=== PATIENT | female | born 1960 | race Caucasian/White ===

== ENCOUNTER 2025-01-22 13:15 | Outpatient (AMB) | payer MEDICARE, SELFPAY ==
[2025-01-22 13:22] VITALS: BMI 27.2
--- NOTE | 2025-01-22 13:22 | A.PHYSOV_ITS ---
Vital Signs 01/22/25 13:22 Height 5 ft 8 in Weight 179 lb BMI 27.2 Intake Visit Reasons: B/L SHOULDER INJECTIONS Intake Note: Patient is a 64 year old female in office today for bilateral shoulder injection. Audio Production Manager Required: No Allergies Sulfa (Sulfonamide Antibiotics) Allergy (Unknown, Verified 01/22/25 13:25) Unknown cillin family Allergy (Unknown, Uncoded 01/22/25 13:25) Unknown [facility] Medical History (Updated 01/22/25 @ 13:48 by uJan Carlos Cartagena DO) Rotator cuff impingement syndrome of right shoulder Rotator cuff impingement syndrome of left shoulder Surgical History History of cataract surgery History of knee surgery History of cholecystectomy History of back surgery Social History Alcohol intake: current Alcohol intake frequency: holidays/special occasions only Patient Tobacco Use Status: Former Tobacco user Current occupational status: retired Physical Exam Vital Signs: BMI result Body Mass Index 27.2 Office Procedures AMB Shoulder Injection AMB Shoulder Injection Procedure Details: After informed consent was obtained, anterior aspect of the left shoulder was prepped with Betadine. 1.5 in 22 gauge hypodermic needle was introduced percutaneously and advanced into the subacromial area. After negative aspiration for blood total volume of 6 cc containing 40 mg of triamcinolone and 2% lidocaine was injected without resistance. The identical procedure was repeated on the right side. Patient tolerated procedure very well without complications with excellent anesthetic response. Shoulder Injection - : Bilateral All charges added?: Procedure code (CPT) selection complete Office Meds Kenalog 40 mg/mL suspension for injection Performing Provider: Juan Carlos Cartagena DO Performing Location[facility] Administered by: Juan Carlos Cartagena DO on 01/22/25 13:49 Dose Route Admin Location Dispensed Lot Number Expiration Date [facility] Windows Phone Developer 80 mg intra-articular 2 mL [id number] [employer] Total Dispensed Waste 2 mL 0 % lidocaine (PF) 20 mg/mL (2 %) injection solution Performing Provider: Juan Carlos Cartagena DO Performing Location: [facility] Administered by: Juan Carlos Cartagena DO on 01/22/25 13:49 Dose Route Admin Location Dispensed Lot Number Expiration Date [facility] Windows Phone Developer 200 mg intra-articular 10 mL [id number] [facility] Total Dispensed Waste 10 mL 0 % Assessment & Plan Assessment & Plan (1) Rotator cuff impingement syndrome of left shoulder: Code(s): M75.42 - Impingement syndrome of left shoulder Category: Medical (2) Rotator cuff impingement syndrome of right shoulder: Code(s): M75.41 - Impingement syndrome of right shoulder Category: Medical Plan: Bilateral shoulder injections Plan Bilateral shoulder injections Orders: Orders AMB Shoulder Injection Today M75.41 - Impingement syndrome of right shoulder, M75.42 - Impingement syndrome of left shoulder Coding Level of Care Code Procedure Only Diagnoses Rotator cuff impingement syndrome of left shoulder M75.42 Rotator cuff impingement syndrome of right shoulder M75.41 CPT Codes AMB Shoulder Injection - Hip/Bursa Injection - : Bilateral ([id number])
--- OUTSIDE RECORDS SUMMARY | 2025-01-22 17:39 | XMS_ITS | Encounter Summary ---
Author Organization [facility] [employer] [facility] Prior to 12/16/2023 Address [address] [place] [address] Care Team Providers Care Fiber Product Cutting Machine Operator Name Role Phone Jose Martin Wang MD Primary Care Provider [phone] Encounter Details Date Type Department Care Team Description 03/02/2023 [facility] Medical Records [address] [place] [address] Abstract, Provider Social History Tobacco Use Types Packs/Day Years Used Date Smoking Tobacco: Former Cigarettes 0.1 33 0 02/14/1981 - 02/14/2014 Smokeless Tobacco: Former Comments:occ Alcohol Use Standard Drinks/Week Comments Yes 0 (1 standard drink = 0.6 oz pur e alcohol) rare Sex Assigned at Date Recorded Not on file Job Start Date Occupation Industry Not on file Not on file Not on file documented as of this encounter Plan of Treatment Not on file documented as of this encounter Visit Diagnoses Not on filedocumented in this encounter Care Teams Fiber Product Cutting Machine Operator Relationship Specialty Start Date End Date Jose Martin Wang MD [address] [place], [place] [phone] PCP - General 07/15/10 documented as of this encounter
--- OUTSIDE RECORDS SUMMARY | 2025-01-22 17:39 | XMS_ITS | Encounter Summary ---
Author Organization [facility] Prior to 12/16/2023 Address [address] [place] [address] Care Team Providers Care Christmas Bell Ringer Name Role Phone Jose Martin Wang MD Primary Care Provider [phone] Encounter Details Date Type Department Care Team Description 06/22/2023 Offset Label Rewinder Report Medical Records [address] [place] [address] Juan Carlos Cartagena, Social History Tobacco Use Types Packs/Day Years [...] on filedocumented in this encounter Care Teams Christmas Bell Ringer Relationship Specialty Start Date End Date Jose Martin Wang MD [address] [place], [place] [phone] PCP - General 07/15/10 documented as of this encounter
--- OUTSIDE RECORDS SUMMARY | 2025-01-22 17:39 | XMS_ITS | Encounter Summary ---
Author Organization [facility]rud[facility] [employer] [facility] Prior to 12/16/2023 Address [address] [place] [address] Care Team Providers Care Miller Distillery Name Role Phone Jose Martin Wang MD Primary Care Provider [phone] Encounter Details Date Type Department Care Team Description 04/21/2023 Pt. Non Urgent Medical Question Adult Medicine [address] [phone] Jose Martin Wang MD [address] [place] [address] Social History Tobacco Use Types Packs/Day Years [...] on filedocumented in this encounter Care Teams Miller Distillery Relationship Specialty Start Date End Date Jose Martin Wang MD [address] [place] [address] PCP - General 07/15/10 documented as of this encounter
--- OUTSIDE RECORDS SUMMARY | 2025-01-22 17:39 | XMS_ITS | Encounter Summary ---
Author Organization [facility]rudis [employer] [facility] Prior to 12/16/2023 Address [address] [place] [address] Care Team Providers Care Extension Division Director Name Role Phone Jose Martin Wang MD Primary Care Provider [phone] Jerome Wilcox MD Primary Care Provider Unav ailable Encounter Details Date Type Department Care Team Description 02/18/2010 Hospital Medical Records [address] [place] [address] Anaid Alejandro Social History Tobacco Use Types Packs/Day Years [...] on filedocumented in this encounter Care Teams Extension Division Director Relationship Specialty Start Date End Date Jose Martin Wang MD [address] [place], [place] [phone] PCP - General 07/15/10 Jerome Wilcox MD PCP - General 12/14/1993 07/14/10 documented as of this encounter
--- OUTSIDE RECORDS SUMMARY | 2025-01-22 17:39 | XMS_ITS | Encounter Summary ---
Author Organization [employer] [facility] Prior to 12/16/2023 Address [address] [place] [address] Care Team Providers Care Rate Clerk Passenger Name Role Phone Jose Martin Wang MD Primary Care Provider [phone] Encounter Details Date Type Department Care Team Description 05/27/2023 Orders Only Adult Medicine [facility] [address] [place] [address] [phone] Ibeth Doll PA-C [address] [place] [address] [phone] Social History Tobacco Use Types Packs/Day Years [...] on filedocumented in this encounter Care Teams Rate Clerk Passenger Relationship Specialty Start Date End Date Jose Martin Wang MD [address] [place] [address] [phone] PCP - General 07/15/10 documented as of this encounter
--- OUTSIDE RECORDS SUMMARY | 2025-01-22 17:40 | XMS_ITS | Encounter Summary ---
Author Organization [employer] [facility] Prior to 12/16/2023 Address [address] [place] [address] Care Team Providers Care Flatbed Company Driver Name Role Phone Jose Martin Wang MD Primary Care Provider [phone] Encounter Details Date Type Department Care Team Description 09/21/2022 Orders Only Medical Records [address] [place] [address] Abstract, Provider Social History Tobacco Use Types [...] on file documented as of this encounter Procedures Procedure Name Priority Date/Time Associated Diagnosis Comments OUTSIDE PLAIN FILM Routine 08/03/2022 documented in this encounter Results * OUTSIDE PLAIN FILM (08/03/2022) Provider Abstract RADIOLOGY documented in this encounter Visit Diagnoses Not on filedocumented in this encounter Care Teams Flatbed Company Driver Relationship Specialty Start Date End Date Jose Martin Wang MD [address] [place] [address] PCP - General 07/15/10 documented as of this encounter
--- OUTSIDE RECORDS SUMMARY | 2025-01-22 17:40 | XMS_ITS | Encounter Summary ---
Author Organization [facility] [facility] Prior to 12/16/2023 Address [address] [place] [address] Care Team Providers Care Architectural Technician Name Role Phone Jose Martin Wang MD Primary Care Provider [phone] Encounter Details Date Type Department Care Team Description 08/30/2022 Glass Setter Report Medical Records [address] [place] [address] Juan Carlos Cartagena DO Social History Tobacco Use Types Packs/Day Years Used Date Smoking Tobacco: Former Cigarettes 0.1 33 0 02/14/1981 - 02/14/2014 Smokeless Tobacco: Former Comments:occ Alcohol Use Standard Drinks/Week Comments Yes 0 (1 standard drink = 0.6 oz pur e alcohol) rare Sex Assigned at Date Recorded Not on file Job Start Date Occupation Industry Not on file Not on file Not on file COVID-19 Exposure Response Date Recorded In the last 10 days, have yo u been in contact with someone who was confirmed or suspected to have Coronavirus/COVID-19? No / Unsure 08/05/2022 8:14 AM EDT documented as of this encounter Plan of Treatment Not on file documented as of this encounter Visit Diagnoses Not on filedocumented in this encounter Care Teams Architectural Technician Relationship Specialty Start Date End Date Jose Martin Wang MD [address] [place] [address] PCP - General 07/15/10 documented as of this encounter
--- OUTSIDE RECORDS SUMMARY | 2025-01-22 17:40 | XMS_ITS | Encounter Summary ---
Author Organization [employer] [facility] Prior to 12/16/2023 Address [address] [place] [address] Care Team Providers Care Iuss Analyst Name Role Phone Jose Martin Wang MD Primary Care Provider [phone] Encounter Details Date Type Department Care Team Description 09/22/2023 Graphic Art Designer Report Medical Records [address] [place] [address] Juan Carlos Cartagena, Social History Tobacco Use [...] on filedocumented in this encounter Care Teams Iuss Analyst Relationship Specialty Start Date End Date Jose Martin Wang MD [address] [place], [place] [phone] PCP - General 07/15/10 documented as of this encounter
--- OUTSIDE RECORDS SUMMARY | 2025-01-22 17:40 | XMS_ITS | Encounter Summary ---
Author Organization [employer] [facility] Prior to 12/16/2023 Address [address] [place] [address] Care Team Providers Care Radio Program Director Name Role Phone Jose Martin Wang MD Primary Care Provider [phone] Encounter Details Date Type Department Care Team Description 08/04/2022 Paper Goods Machine Operator Report Medical Records [address] [place] [address] Center, [facility] [address] [place] [address] Social History Tobacco Use Types Packs/Day Years [...] on filedocumented in this encounter Care Teams Radio Program Director Relationship Specialty Start Date End Date Jose Martin Wang MD [address] [place] [address] PCP - General 07/15/10 documented as of this encounter
--- OUTSIDE RECORDS SUMMARY | 2025-01-22 17:40 | XMS_ITS | Encounter Summary ---
Author Organization [employer] [facility] Prior to 12/16/2023 Address [address] [place] [address] Care Team Providers Care Ladies Underwear Operator Name Role Phone Jose Martin Wang MD Primary Care Provider [phone] Encounter Details Date Type Department Care Team Description 07/31/2013 Orders Only Adult Medicine [address] [phone] Jose Martin Wang MD [address] [place] [address] Social History Tobacco Use Types Packs/Day Years Used Date Smoking Tobacco: Former Cigarettes Q uit: 04/16/2006 Smokeless Tobacco: Never Comments:occ Alcohol Use Standard Drinks/Week Comments Not Asked 0 (1 standard drink = 0.6 oz pur e alcohol) Sex Assigned at Date Recorded Not on file Job Start Date Occupation Industry Not on file Not on file Not on file documented as of this encounter Plan of Treatment Not on file documented as of this encounter Visit Diagnoses Not on filedocumented in this encounter Care Teams Ladies Underwear Operator Relationship Specialty Start Date End Date Jose Martin Wang MD [address] [place] [address] PCP - General 07/15/10 documented as of this encounter
--- OUTSIDE RECORDS SUMMARY | 2025-01-22 17:40 | XMS_ITS | Encounter Summary ---
Author Organization [employer] [facility] Prior to 12/16/2023 Address [address] [place] [address] Care Team Providers Care Freezer Unloader Name Role Phone Jose Martin Wang MD Primary Care Provider [phone] Encounter Details Date Type Department Care Team Description 05/17/2022 Honing Machine Try Out Setter Report Medical Records [address] [place] [address] Juan Carlos Cartagena DO Social History Tobacco [...] suspected to have Coronavirus/COVID-19? No / Unsure 05/18/2022 1:08 PM EDT documented as of this encounter Plan of Treatment Not on file documented as of this encounter Visit Diagnoses Not on filedocumented in this encounter Care Teams Freezer Unloader Relationship Specialty Start Date End Date Jose Martin Wang MD [address] [place] [address] PCP - General 07/15/10 documented as of this encounter
--- OUTSIDE RECORDS SUMMARY | 2025-01-22 17:40 | XMS_ITS | Encounter Summary ---
Author Organization [facility] [facility] Prior to 12/16/2023 Address [address] [place] [address] Care Team Providers Care Machine Erector Name Role Phone Jose Martin Wang MD Primary Care Provider [phone] Encounter Details Date Type Department Care Team Description 04/26/2019 Orders Only Adult Medicine [address] [phone] Jose Martin Wang MD [address] [place] [address] Social History Tobacco Use Types Packs/Day Years Used Date Smoking Tobacco: Some Days Cigarettes 0.1 33 Started: 02/14/1981; Last attempted to quit: 02/14/2014 Smokeless Tobacco: Former Comments:occ Alcohol Use [...] on filedocumented in this encounter Care Teams Machine Erector Relationship Specialty Start Date End Date Jose Martin Wang MD [address] [place] [address] PCP - General 07/15/10 documented as of this encounter
--- OUTSIDE RECORDS SUMMARY | 2025-01-22 17:40 | XMS_ITS | Encounter Summary ---
Author Organization [employer] [facility] Prior to 12/16/2023 Address [address] [place] [address] Care Team Providers Care Pastrycook Name Role Phone Jose Martin Wang MD Primary Care Provider [phone] Encounter Details Date Type Department Care Team Description 05/29/2022 Pt. Non Urgent Medical Question Adult Medicine [facility] [address] [place] [address] [phone] Jose Martin Wang MD [address] [place] [address] Social History Tobacco Use Types Packs/Day [...] on filedocumented in this encounter Care Teams Pastrycook Relationship Specialty Start Date End Date Jose Martin Wang MD [address] [place] [address] PCP - General 07/15/10 documented as of this encounter
--- OUTSIDE RECORDS SUMMARY | 2025-01-22 17:40 | XMS_ITS | Encounter Summary ---
Author Organization [facility] Prior to 12/16/2023 Address [address] [place] [address] Care Team Providers Care Corporate Fitness Program Coordinator Name Role Phone Jose Martin Wang MD Primary Care Provider [phone] Encounter Details Date Type Department Care Team Description 10/04/2018 [facility] Medical Records [address] [place] [address] Abstract, Provider Social History Tobacco Use Types Packs/Day Years Used Date Smoking Tobacco: Former Cigarettes 1 33 0 02/14/1981 - 02/14/2014 Smokeless Tobacco: [...] on filedocumented in this encounter Care Teams Corporate Fitness Program Coordinator Relationship Specialty Start Date End Date Jose Martin Wang MD [address] [place] [phone] PCP - General 07/15/10 documented as of this encounter
--- OUTSIDE RECORDS SUMMARY | 2025-01-22 17:40 | XMS_ITS | Encounter Summary ---
Author Organization [employer] [facility] Prior to 12/16/2023 Address [address] [place] [address] Care Team Providers Care Vegetable Buncher Name Role Phone Jose Martin Wang MD Primary Care Provider [phone] Encounter Details Date Type Department Care Team Description 11/26/2022 Aluminizer Report Medical Records [address] [place] [address] Renetta Cifuentes Social History Tobacco Use Types Packs/Day Years [...] suspected to have Coronavirus/COVID-19? No / Unsure 11/08/2022 5:17 PM EDT documented as of this encounter Plan of Treatment Not on file documented as of this encounter Visit Diagnoses Not on filedocumented in this encounter Care Teams Vegetable Buncher Relationship Specialty Start Date End Date Jose Martin Wang MD [address] [place] [address] PCP - General 07/15/10 documented as of this encounter
--- OUTSIDE RECORDS SUMMARY | 2025-01-22 17:40 | XMS_ITS | Encounter Summary ---
Author Organization [facility] [facility] Prior to 12/16/2023 Address [address] [place] [address] Care Team Providers Care Delinquent Account Clerk Name Role Phone Jose Martin Wang MD Primary Care Provider [phone] Encounter Details Date Type Department Care Team Description 12/27/2018 Telephone Adult Medicine [address] [phone] Jose Martin Wang MD [address] [place] [address] Social History Tobacco Use Types Packs/Day [...] on filedocumented in this encounter Care Teams Delinquent Account Clerk Relationship Specialty Start Date End Date Jose Martin Wang MD [address] [place] [address] PCP - General 07/15/10 documented as of this encounter
--- OUTSIDE RECORDS SUMMARY | 2025-01-22 17:41 | XMS_ITS | Encounter Summary ---
Author Organization [facility] [employer] [facility] Prior to 12/16/2023 Address [address] [place] [address] Care Team Providers Care Fisheries Manager Name Role Phone Jose Martin Wang MD Primary Care Provider [phone] Encounter Details Date Type Department Care Team Description 07/30/2019 Pt. Non Urgent Medical Question Adult Medicine [address] [phone] Jose Martin Wang MD [address] [place] [phone] Social History Tobacco Use Types Packs/Day Years [...] on filedocumented in this encounter Care Teams Fisheries Manager Relationship Specialty Start Date End Date Jose Martin Wang MD [address] [place] [address] PCP - General 07/15/10 documented as of this encounter
--- OUTSIDE RECORDS SUMMARY | 2025-01-22 17:44 | XMS_ITS | Encounter Summary ---
Author Organization [employer] [facility] Prior to 12/16/2023 Address [address] [place] [address] Care Team Providers Care Food Supervisor Name Role Phone Jose Martin Wang MD Primary Care Provider [phone] Encounter Details Date Type Department Care Team Description 08/10/2018 Hospital Medical Records [address] [place] [address] John Randolph [address] [place] [address] Social History Tobacco Use Types Packs/Day Years [...] on filedocumented in this encounter Care Teams Food Supervisor Relationship Specialty Start Date End Date Jose Martin Wang MD [address] [place], [place] [phone] PCP - General 07/15/10 documented as of this encounter
--- OUTSIDE RECORDS SUMMARY | 2025-01-22 17:44 | XMS_ITS | Encounter Summary ---
Author Organization [employer] [facility] Prior to 12/16/2023 Address [address] [place] [address] Care Team Providers Care Warrant Server Name Role Phone Jose Martin Wang MD Primary Care Provider [phone] Encounter Details Date Type Department Care Team Description 07/27/2018 Plaster Pattern Caster Report Medical Records [address] [place] [address] John Randolph [address] [place] [address] Social History Tobacco Use Types Packs/Day Years [...] on filedocumented in this encounter Care Teams Warrant Server Relationship Specialty Start Date End Date Jose Martin Wang MD [address] [place], [place] [phone] PCP - General 07/15/10 documented as of this encounter
--- OUTSIDE RECORDS SUMMARY | 2025-01-22 17:44 | XMS_ITS | Encounter Summary ---
Author Organization [facility] [facility] Prior to 12/16/2023 Address [address] [place] [address] Care Team Providers Care Distribution Agent Name Role Phone Jose Martin Wang MD Primary Care Provider [phone] Encounter Details Date Type Department Care Team Description 11/18/2021 [facility] Medical Records [address] [place] [address] Abstract, Provider Social History Tobacco Use Types [...] suspected to have Coronavirus/COVID-19? No / Unsure 10/29/2021 3:31 PM EDT documented as of this encounter Plan of Treatment Not on file documented as of this encounter Visit Diagnoses Not on filedocumented in this encounter Care Teams Distribution Agent Relationship Specialty Start Date End Date Jose Martin Wang MD [address] [place] [address] PCP - General 07/15/10 documented as of this encounter
--- OUTSIDE RECORDS SUMMARY | 2025-01-22 17:44 | XMS_ITS | Encounter Summary ---
Author Organization [employer] [facility] Prior to 12/16/2023 Address [address] [place] [address] Care Team Providers Care Finance Vice President Name Role Phone Jose Martin Wang MD Primary Care Provider [phone] Encounter Details Date Type Department Care Team Description 02/09/2022 Telephone Adult Medicine [address] [phone] Jose Martin Wang MD [address] [place] [address] Social History Tobacco Use Types Packs/Day [...] on filedocumented in this encounter Care Teams Finance Vice President Relationship Specialty Start Date End Date Jose Martin Wang MD [address] [place] [address] PCP - General 07/15/10 documented as of this encounter
--- OUTSIDE RECORDS SUMMARY | 2025-01-22 17:45 | XMS_ITS | Encounter Summary ---
Author Organization [facility]rud[facility] [employer] [facility] Prior to 12/16/2023 Address [address] [place] [address] Care Team Providers Care Follow Up Clerk Name Role Phone Jose Martin Wang MD Primary Care Provider Encounter Details Date Type Department Care Team Description 11/05/2014 Business Doc Medical Records [address] [place] [address] Abstract, Provider Social History Tobacco Use Types Packs/Day Years Used Date Smoking Tobacco: Former Cigarettes Q uit: 02/14/2014 Smokeless Tobacco: Never Comments:occ Alcohol Use Standard [...] on filedocumented in this encounter Care Teams Follow Up Clerk Relationship Specialty Start Date End Date Jose Martin Wang MD [address] [place] [address] [phone] PCP - General 07/15/10 documented as of this encounter
--- OUTSIDE RECORDS SUMMARY | 2025-01-22 17:45 | XMS_ITS | Encounter Summary ---
Author Organization [facility] Prior to 12/16/2023 Address [address] [place] [address] Care Team Providers Care Snowmaker Name Role Phone Jose Martin Wang MD Primary Care Provider [phone] Encounter Details Date Type Department Care Team Description 03/03/2015 SPECIAL EDUCATION CLASSROOM AIDE/[facility] Report Medical Records [address] [place] [address] Abstract, Provider Social History Tobacco Use Types [...] on filedocumented in this encounter Care Teams Snowmaker Relationship Specialty Start Date End Date Jose Martin Wang MD [address] [place] [address] [phone] PCP - General 07/15/10 documented as of this encounter
--- OUTSIDE RECORDS SUMMARY | 2025-01-22 17:45 | XMS_ITS | Encounter Summary ---
Author Organization [employer] [employer] [facility] Prior to 12/16/2023 Address [address] [place] [address] Care Team Providers Care Hooker Machine Tender Name Role Phone oJse Martin Wang MD Primary Care Provider [phone] Encounter Details Date Type Department Care Team Description 12/06/2014 [employer] Truck Driver Report Medical Records [address] [place] [id number] Alex Christianson MD Social History Tobacco Use Types Packs/Day Years [...] on filedocumented in this encounter Care Teams Hooker Machine Tender Relationship Specialty Start Date End Date Jose Martin Wang MD [address] [place], [place] [phone] PCP - General 07/15/10 documented as of this encounter
--- OUTSIDE RECORDS SUMMARY | 2025-01-22 17:45 | XMS_ITS | Encounter Summary ---
Author Organization [employer] [facility] Prior to 12/16/2023 Address [address] [place] [address] Care Team Providers Care Donor Technician Name Role Phone Jose Martin Wang MD Primary Care Provider [phone] Encounter Details Date Type Department Care Team Description 07/27/2018 Reinstatement Clerk Report Medical Records [address] [place] [address] John Randolph [address] [place] [id number] Social History Tobacco Use Types Packs/Day Years [...] on filedocumented in this encounter Care Teams Donor Technician Relationship Specialty Start Date End Date Jose Martin Wang MD [address] [place], [place] [phone] PCP - General 07/15/10 documented as of this encounter
--- OUTSIDE RECORDS SUMMARY | 2025-01-22 17:45 | XMS_ITS | Clinical Summary ---
Author Organization [facility] [address] [facility] Address [address] [facility] [place] [address] Phone Care Team Providers Care Paper Machine Supervisor Name Role Phone Jose Martin Wang MD Primary Care Provider [phone] Allergies Active Allergy Reactions Criticality Noted Date Comments Cabbage 03/22/2016 Other Reaction(s): Hives/Urticaria Cefaclor 04/04/2006 Maple Flavor 03/22/2016 Other Reaction(s): Hives/Urticaria Penicillin V Potassium 05/10/2005 Other Reaction(s): Hives/Urticaria Penicillins Swelling 07/16/2009 Other Reaction(s): Hives/Urticaria LIPS SWELL Sulfacetamide Sodium 05/10/2005 Other Reaction(s): Hives/Urticaria Medications CYANOCOBALAMIN , VITAMIN B-12, ORAL Take by mouth daily. Active CALCIUM CARBONATE ORAL Take by mouth daily. Active MULTIVITAMIN ORAL 1 po daily Active meclizine (ANTIVERT) 25 mg tablet Take 1 tablet (25 mg total) by mouth 3 (three) times a day if needed for dizziness. 30 tablet 2 09/12/19 25 Active lisinopriL (PRINIVIL,ZEST RIL) 10 mg tablet TAKE 1 TABLET BY MOUTH DAILY 90 tablet 1 10/12/19 25 Active atorvastatin (LIPITOR) 10 mg tablet TAKE 1 TABLET BY MOUTH AT BEDTIME 90 tablet 11/23/19 25 Active albuterol HFA (PROAIR HFA ; PROVENTIL HFA ; VENTOLIN HFA) 90 mcg/actuation inhaler Inhale 1 puff by mouth every 4 (four) hours if needed for wheezing. 18 g 12/01/19 25 Active albuterol HFA (ProAir HFA) 90 mcg/actuation inhaler Inhale 2 puffs by mouth every 4 (four) hours if needed for wheezing or shortness of breath. 25.5 g 1 12/01/19 25 026 Active amitriptyline (ELAVIL) 10 mg tablet Take 1-2 tablets (10-20 mg total) by mouth at bedtime. 60 each 3 12/14/19 25 026 Active metFORMIN (GLUCOPHAGE) 500 mg tablet TAKE 2 TABLETS(1000 MG) BY MOUTH TWICE DAILY WITH MEALS 360 tablet 1 01/15/20 25 Active oxyCODONE-acet aminophen (PERCOCET) 10-325 mg per tablet Take 1 tablet by mouth 4 (four) times a day. Max Daily Amount: 4 tablets 112 tablet 01/12/20 25 Active metFORMIN (GLUCOPHAGE) 500 mg tablet Take 2 tablets (1,000 mg total) by mouth 2 (two) times a day with meals. 360 tablet 1 04/26/19 25 025 Discontinued meloxicam (MOBIC) 7.5 mg tablet Take 1 tablet (7.5 mg total) by mouth 1 (one) time each day. 30 tablet 3 10/12/19 25 025 oxyCODONE-acet aminophen (PERCOCET) 10-325 mg per tablet Take 1 tablet by mouth 4 (four) times a day. Max Daily Amount: 4 tablets 112 tablet 12/13/19 25 025 Discontinued(Re order) oxyCODONE-acet aminophen (PERCOCET) 10-325 mg per tablet Take 1 tablet by mouth 4 (four) times a day. Max Daily Amount: 4 tablets 112 tablet 01/10/20 25 025 Discontinued(Re order) Active Problems Problem Noted Date Diagnosed Date Pulmonary nodules 07/17/2020 History of COVID-19 07/07/2020 High cholesterol 02/01/2019 Lumbar disc disease 2017 Ascending aorta dilation 11/24/2016 Diabetic neuropathy 04/08/2014 Known medical problems 06/19/2013 DM (diabetes mellitus), type 2 with neurological complications 08/22/2012 Cataract 07/01/2010 Hyperglycemia 01/07/2010 Degenerative arthritis of cervical spine 010 Rotator cuff tendinitis 07/16/2009 Essential hypertension, benign 05/18/2006 Insomnia 01/25/2005 Lumbago 01/25/2005 Overview (01/05/2024): failed back syndrome Encounters Date Type Department Care Team Description 11/30/2024 3:00 PM EDT Office Visit Adult Medicine [address] [phone] Jose Martin Wang MD DM (diabetes mellitus), type 2 with neurological complications ([facility] V24, [facility] V28) (Primary Dx); High cholesterol; Essential hypertension, benign; Lumbar disc disease; Other chronic pain; Encounter for long-term (current) use of medications; Hypercalcemia; Leukocytosis, unspecified type from Last 3 Months Immunizations Immunization Administration Dates Next Due Tdap Tetanus diptheria acell ular pertussis (Boostrix; Adacel) 7yo and older 08/04/2012 Surgical History Surgery Date Site/Laterality Comments LUMBAR LAMINECTOMY PROCEDURE: HISTORICAL LUMB LAMINECTOMY; COMMENT: x2 early OTHER SURGICAL HISTORY 1996 PROCEDURE: NM ARTHRODESIS POSTERIOR INTERBODY 1 NTRSPC LUMBAR; COMMENT: Dr. Bhaskar Humphrey, L4-5 Medical History Medical History Date Comments Lumbago 01/25/2005 DX:Lumbago; COMM ENT: failed back syndrome Insomnia, unspecified 01/25/2005 DX:Insomni a, unspecified Type II or unspecified type diabetes mellitus without mention of complication, not stated as uncontrolled 05/09/2009 DX:Type II or unspecified ty pe diabetes mellitus without mention of complication, not stated as uncontrolled Unspecified essential hypertension DX:Unspecified essential hypertension Type II or unspecified type diabetes mellitus with neurological manifestations, not stated as uncontrolled(250.60) ([facility] V24, [facility] V28) DX:Type II or unspecified ty pe diabetes mellitus with neurological manifestations, not stated as uncontrolled(250.60) ([facility]) Type II or unspecified type diabetes mellitus with neurological manifestations, not stated as uncontrolled(250.60) ([facility] V24, [facility] V28) 08/22/2012 DX:Type II or unspecified ty pe diabetes mellitus with neurological manifestations, not stated as uncontrolled(250.60) ([facility]) History of tobacco use DX:Histor y of tobacco use Family History Medical History Relation Name Comments Macular degeneration Maternal Grandmother Cataracts Mother Glaucoma Mother Blindness Neg Hx Strabismus Neg Hx Relation Name Status Comments Maternal Grandmother Mother Social History Tobacco Use Types Packs/Day Years Used Date Smoking Tobacco: Former Cigarettes 0.1 33 0 02/14/1981 - 02/14/2014 Smokeless Tobacco: Former Tobacco Cessation:Counseling Given: Not Answered Alcohol Use Standard Drinks/Week Comments Yes 0 (1 standard drink = 0.6 oz pur e alcohol) Comments No Sex and Gender Information Value Date Recorded Sex Assigned at Not on file Legal Sex Female 2:54 AM EST Gender Identity Not on file Sexual Orientation Not on file Last Filed Vital Signs Vital Sign Reading Time Taken Comments Blood Pressure 121/73 11/30/2024 2:47 PM EDT Pulse 91 11/30/2024 2:47 PM EDT Temperature 36.9 C (98.5 F) 11/30/2024 2:47 PM EDT Respiratory Rate 15 11/30/2024 2:47 PM EDT Oxygen Saturation 98% 11/30/2024 2:47 PM EDT Inhaled Oxygen Concentration - - Weight 79.8 kg (176 lb) 11/30/2024 2:47 PM EDT Height 172.7 cm (5' 8 ) 11/30/2024 2:47 PM EDT Body Mass Index 26.76 11/30/2024 2:47 PM EDT Plan of Treatment Upcoming Encounters Date Type Department Care Team (Late st Contact Info) Description 03/05/2025 2:30 PM EST Office Visit Adult Medicine [address] [phone] Jose Martin Wang MD [address] [place] [address] Health Maintenance Due Date Last Done Comments Breast Cancer Screening 1961 Colorectal Cancer Screening: Colonoscopy 1961 Diabetes: Annual Foot Exam 09/06/1971 Pneumococcal Vaccine: 50+ Years (1 of 2 - PCV) 1980 Cervical Cancer Screening: Pap Smear 1982 RSV Immunization Adult Patients (1 - Risk 50-74 years 1-dose series) 09/06/2011 Zoster Vaccines (1 of 2) 09/06/2011 HIV Screening 01/23/2022 Social Influencers of Health Screening 01/23/2022 DTaP,Tdap,and Td Vaccines (2 - Td or Tdap) 08/04/2022 08/04/2012 Diabetes: Annual Retina Eye Exam 01/29/2024 01/28/2023 Depression Screening 02/15/2024 11/04/2023 COVID-19 Vaccine ( season) 2024 12/14/2021, 05/14/2021, 07/10/2020, Additional history exists Influenza Vaccine (#1) 2024 Medicare Annual Wellness Visit 11/03/2024 11/04/2023 Diabetes: Blood Sugar Control Test (HGBA1C) 03/14/2025 09/11/2024, 05/23/2024, 11/24/2023, Additional history exists Diabetes: Annual Urine Albumin-Creatinine Ratio (uACR) 06/04/2025 06/04/2024, 11/24/2023 Diabetes: Annual GFR (Glomerular Filtration Rate) 09/11/2025 09/11/2024, 05/23/2024, 08/02/2023, Additional history exists Hypertension/CHF/CAD Annual BMP Blood Test 09/11/2025 09/11/2024, 05/23/2024, 08/02/2023, Additional history exists Cholesterol Screening (Lipid Panel) 05/23/2029 05/23/2024, 08/02/2023, 08/02/2023 Hepatitis C Screening Completed 10/16/2020 HIB Vaccines Aged Out No longer eligi ble based on patient's age to complete this topic HPV Vaccines Aged Out No longer eligi ble based on patient's age to complete this topic Hepatitis A Vaccines Aged Out No long er eligible based on patient's age to complete this topic Hepatitis B Vaccines Aged Out No long er eligible based on patient's age to complete this topic IPV Vaccines Aged Out No longer eligi ble based on patient's age to complete this topic MMR Vaccines Aged Out No longer eligi ble based on patient's age to complete this topic Meningococcal ACWY Vaccine Aged Out N o longer eligible based on patient's age to complete this topic Meningococcal B Vaccine Aged Out No l onger eligible based on patient's age to complete this topic RSV Immunization Patients Under 20 months Aged Out No longer eligible based on patient's age to complete this topic Varicella Vaccines Aged Out No longer eligible based on patient's age to complete this topic Procedures Procedure Name Priority Date/Time Associated Diagnosis Comments MANUAL DIFFERENTIAL - SYSMEX WAM Routine 11/29/2024 2:16 PM EDT Leukocytosis, unspecified type CBC WITH AUTO DIFFERENTIAL Routine 11/29/2024 2:16 PM EDT Leukocytosis, unspecified type VITAMIN D 25 HYDROXY Routine 11/29/2024 2:16 PM EDT Vitamin D deficiency CBC AND DIFFERENTIAL Routine 11/29/2024 2:16 PM EDT Leukocytosis, unspecified type BASIC METABOLIC PANEL Routine 09/11/2024 3:34 PM EDT Essential hypertension, benign HEMOGLOBIN A1C Routine 09/11/2024 3:34 PM EDT DM (diabetes mellitus), type 2 with neurological complications (CMS/HCC V24, CMS/HCC V28) MICROALBUMIN CREATININE URINE RATIO Routine 06/04/2024 1:45 PM EDT DM (diabetes mellitus), type 2 with neurological complications (CMS/HCC V24, CMS/HCC V28) LIPID PANEL WITH REFLEX TO DIRECT LDL Routine 05/23/2024 11:44 AM EDT High cholesterol HM DEPRESSION SCREENING Routine 11/04/2023 DIABETES EYE EXAM Routine 01/28/2023 HEPATITIS C SCREENING Routine 10/16/2020 from Last 3 Months or Most Recently Relevant to Health Maintenance Results * (ABNORMAL) Manual differential (11/29/2024 2:16 PM EDT) Neutrophils % 42.0 % LAB HEMETOLOGY METHOD 11/29/2024 5:44 PM EDT [facility] Lymphocytes % 47.0 % LAB HEMETOLOGY METHOD 11/29/2024 5:44 PM EDT [facility] Reactive Lymphocyte 6.00 % LAB HEMETOLOGY METHOD 11/29/2024 5:44 PM EDT [facility] Monocytes % 5.0 % LAB HEMETOLOGY METHOD 11/29/2024 5:44 PM EDT [facility] Eosinophils % 0.0 % LAB HEMETOLOGY METHOD 11/29/2024 5:44 PM EDT [facility] Basophils % 0.0 % LAB HEMETOLOGY METHOD 11/29/2024 5:44 PM EDT [facility] Neutrophils Absolute Manual 4.79 1.50 - 7.00 K/mcL LAB [facility] Lymph[facility] Absolute 5.36(H) 1.00 - 5.00 K/mcL LAB [facility] Reactive Lymph Abs Manual 0.68(H) 0.00 - 0.00 lym LAB HEMETOLOGY METHOD 11/29/2024 5:44 PM EDT [facility] Monocytes Absolute Manual 0.57 0.20 - 1.00 K/mcL LAB HEMETOLOGY METHOD 11/29/2024 5:44 PM EDT [facility] Eosinophils Absolute Manual 0.00 0.00 - 0.50 K/mcL LAB HEMETOLOGY METHOD 11/29/2024 5:44 PM EDT [facility] Basophils Absolute Manual 0.00 0.00 - 0.20 K/mcL LAB HEMETOLOGY METHOD 11/29/2024 5:44 PM EDT [facility] Rbc Morphology Consistent with indices Consistent with indices, Normal for [place] LAB HEMETOLOGY METHOD 11/29/2024 5:44 PM EDT [facility] Comment:RBC: Morphology agre es with CBC Platelet Morphology - WAM See Note(A) Normal LAB HEMETOLOGY METHOD 11/29/2024 5:44 PM EDT [facility] Comment:PLT: Normal Blood Venous blood specimen / Unknown Venipuncture / Unknown 11/29/2024 2:16 PM EDT 11/29/2024 2:16 PM EDT us Jose Martin Wang MD LAB BLOOD ORDERABLES Final Resu lt [facility] [address] [place] [address], * (ABNORMAL) CBC auto differential (11/29/2024 2:16 PM EDT) WBC 11.4(H) 4.8 - 10.8 K/mcL LAB HEMETOLOGY METHOD 11/29/2024 5:44 PM EDT [facility] RBC 4.20 3.80 - 4.80 M/mcL LAB HEMETOLOGY METHOD 11/29/2024 5:44 PM EDT [facility] Hemoglobin 12.8 11.5 - 16.0 g/dL LAB HEMETOLOGY METHOD 11/29/2024 5:44 PM EDT [facility] Hematocrit 38.8 35.0 - 47.0 % LAB HEMETOLOGY METHOD 11/29/2024 5:44 PM EDT [facility] MCV 92.4 79.0 - 98.0 FL LAB HEMETOLOGY METHOD 11/29/2024 5:44 PM EDT [facility] MCH 30.5 27.0 - 32.0 pcg LAB HEMETOLOGY METHOD 11/29/2024 5:44 PM EDT [facility] MCHC 33.0 32.0 - 37.0 g/dL LAB HEMETOLOGY METHOD 11/29/2024 5:44 PM EDT [facility] RDW 13.1 11.0 - 15.0 % LAB HEMETOLOGY METHOD 11/29/2024 5:44 PM EDT [facility] Platelets 344 130 - 400 K/mcL LAB HEMETOLOGY METHOD 11/29/2024 5:44 PM EDT [facility] MPV 8.8 7.0 - 11.0 FL LAB HEMETOLOGY METHOD 11/29/2024 5:44 PM EDT [facility] NRBC 0.0 <1.0 % LAB HEMETOLOGY METHOD 11/29/2024 5:44 PM EDT [facility] NRBC Absolute 0.00 <0.10 K/mcL LAB HEMETOLOGY METHOD 11/29/2024 5:44 PM EDT [facility] Blood Venous blood specimen / Unknown Venipuncture / Unknown 11/29/2024 2:16 PM EDT 11/29/2024 2:16 PM EDT us Jose Martin Wang MD LAB BLOOD ORDERABLES Final Resu lt [facility] [address] [place] [address], * Vitamin D 25 hydroxy (11/29/2024 2:16 PM EDT) Vit D, 25-Hydroxy 31.0 30.0 - 80.0 ng/mL LAB CHEMISTRY METHOD 11/29/2024 5:28 PM EDT [facility] Blood Venous blood specimen / Unknown Venipuncture / Unknown 11/29/2024 2:16 PM EDT 11/29/2024 2:16 PM EDT us Jose Martin Wang MD LAB BLOOD ORDERABLES Final Resu lt Performing Organization Address [place]/[facility]/ZIP Co de Phone Number [facility] [address] [place] [address], [place] [phone] * (ABNORMAL) Hemoglobin A1c (09/11/2024 3:34 PM EDT) [facility] Hemoglobin A1C 6.6(H) <6.5 % LAB CHEMISTRY METHOD 09/12/2024 1:22 PM EDT [facility] Mean Bld Glu Estim. 143 mg/dL LAB CHEMISTRY METHOD 09/12/2024 1:22 PM EDT [facility] Blood Venous blood specimen / Unknown Venipuncture / Unknown 09/11/2024 3:34 PM EDT 09/11/2024 3:34 PM EDT us Jose Martin Wang MD LAB BLOOD ORDERABLES Final Resu lt Performing Organization Address City/[facility]/ZIP Co de Phone Number [facility] [address] [place] [address], [place] [phone] * (ABNORMAL) Basic metabolic panel (09/11/2024 3:34 PM EDT) [facility] Sodium 138 133 - 145 mmol/L LAB CHEMISTRY METHOD 09/11/2024 7:52 PM EDT [facility] Potassium 4.4 3.5 - 5.5 mmol/L LAB CHEMISTRY METHOD 09/11/2024 7:52 PM EDT [facility] Chloride 103 96 - 110 mmol/L LAB CHEMISTRY METHOD 09/11/2024 7:52 PM EDT [facility] CO2 27 21 - 32 mmol/L LAB CHEMISTRY METHOD 09/11/2024 7:52 PM EDT [facility] Anion Gap 8 3 - 11 LAB CHEMISTRY METHOD 09/11/2024 7:52 PM EDT [facility] Glucose 88 70 - 100 mg/dL LAB CHEMISTRY METHOD 09/11/2024 7:52 PM EDT [facility] BUN 17 5 - 25 mg/dL LAB CHEMISTRY METHOD 09/11/2024 7:52 PM EDT [facility] Creatinine 0.78 0.50 - 1.10 mg/dL LAB CHEMISTRY METHOD 09/11/2024 7:52 PM EDT [facility] eGFR 85 >=60 mL/min/1. 73m2 LAB CHEMISTRY METHOD 09/11/2024 7:52 PM EDT [facility] Comment:Calculation based on the Chronic Kidney Disease Epidemiology Collaboration (CKD-EPI) equation refit without adjustment for race. BUN/Creatinine Ratio 21.8 LAB CHEMISTRY METHOD 09/11/2024 7:52 PM EDT [facility] Calcium 10.6(H) 8.5 - 10.5 mg/dL LAB CHEMISTRY METHOD 09/11/2024 7:52 PM EDT [facility] Blood Venous blood specimen / Unknown Venipuncture / Unknown 09/11/2024 3:34 PM EDT 09/11/2024 3:34 PM EDT us Jose Martin Wang MD LAB BLOOD ORDERABLES Final Resu lt [facility] [address] [place] [address], * Microalbumin creatinine urine ratio (06/04/2024 1:45 PM EDT) Creatinine, Urine 57.0 mg/dL LAB CHEMISTRY METHOD 06/04/2024 8:34 PM EDT [facility] Microalb, Ur <5.0 0.0 - 29.0 mg/L LAB CHEMISTRY METHOD 06/04/2024 8:34 PM EDT [facility] Microalb/Creat Ratio <9 <30 mg/g creat LAB CHEMISTRY METHOD 06/04/2024 8:34 PM EDT [facility] Urine Urine specimen obtained by clean catch procedure / Unknown Non-blood Collection / Unknown 06/04/2024 1:45 PM EDT 06/04/2024 1:45 PM EDT us Jose Martin Wang MD LAB URINE ORDERABLES Final Resu lt [facility] [address] [place] [address], [place] [phone] * Lipid panel with reflex to direct LDL (05/23/2024 11:44 AM EDT) Cholesterol 171 0 - 200 mg/dL LAB CHEMISTRY METHOD 05/23/2024 3:39 PM EDT [facility] Triglycerides 135 0 - 150 mg/dL LAB CHEMISTRY METHOD 05/23/2024 3:39 PM EDT [facility] HDL 64 >=40 mg/dL LAB CHEMISTRY METHOD 05/23/2024 3:39 PM EDT [facility] LDL Calculated 80 0 - 100 mg/dL LAB CHEMISTRY METHOD 05/23/2024 3:39 PM EDT [facility] VLDL Cholesterol Isacc 27 mg/dL LAB CHEMISTRY METHOD 05/23/2024 3:39 PM EDT [facility] Non HDL Chol. (LDL+VLDL) 107 <145 mg/dL LAB CHEMISTRY METHOD 05/23/2024 3:39 PM EDT [facility] Chol/HDL Ratio 2.7 0.0 - 4.4 LAB CHEMISTRY METHOD 05/23/2024 3:39 PM EDT [facility] Blood Venous blood specimen / Unknown Venipuncture / Unknown 05/23/2024 11:44 AM EDT 05/23/2024 11:44 AM EDT us Jose Martin Wang MD LAB BLOOD ORDERABLES Final Resu lt [facility] [address] [place] [address], * Depression Screening (11/04/2023) Pathologist [facility] Depression Screening abstracted Historical Provider HEALTH MAINTENANCE Final Result * Diabetes Eye Exam (01/28/2023) Pathologist [facility] Diabetes: Annual Retina Eye Exam abstracted Historical Provider HEALTH MAINTENANCE Final Result * Hepatitis C Screening (10/16/2020) Pathologist [facility] Hepatitis C Screening abstracted Historical Provider HEALTH MAINTENANCE Final Result from Last 3 Months or Most Recently Relevant to Health Maintenance Insurance MEDICARE Care Teams Paper Machine Supervisor Relationship Specialty Start Date End Date Jose Martin Wang MD [address] [place] [phone] PCP - General 07/15/10
--- OUTSIDE RECORDS SUMMARY | 2025-01-22 17:46 | XMS_ITS | Encounter Summary ---
Author Organization [employer] Prior to 12/16/2023 Address [address] [place] [address] Care Team Providers Care Tax Intern Name Role Phone Jose Martin Wang MD Primary Care Provider [phone] Encounter Details Date Type Department Care Team Description 12/09/2015 [facility] Medical Records [address] [place] [address] Abstract, Provider Social History Tobacco Use Types [...] on filedocumented in this encounter Care Teams Tax Intern Relationship Specialty Start Date End Date Jose Martin Wang MD [address] [place] [address] [phone] PCP - General 07/15/10 documented as of this encounter
--- OUTSIDE RECORDS SUMMARY | 2025-01-22 17:46 | XMS_ITS | Encounter Summary ---
Author Organization [employer] Prior to 12/16/[address] [place] [address] Care Team Providers Care Fan Runner Name Role Phone Jose Martin Wang MD Primary Care Provider [phone] Encounter Details Date Type Department Care Team Description 07/16/2021 Pt. Non Urgent Medic al Question Adult Medicine [address] [address] Marge Morgan PA Social History Tobacco Use Types Packs/Day Years [...] suspected to have Coronavirus/COVID-19? No / Unsure 07/15/2021 2:15 PM EDT documented as of this encounter Miscellaneous Notes * Telephone Encounter - Rebecca Jimenez M.A. - 07/16/2021 9:54 AM EDTFrom: Acrlee Reva Cedric To: Reva Costello Sent: 07/16/2021 9:39 AM EDT Subject: Brain Well isn't that terrific stroke or inflammation I will tell you Marge I never suffered any head injury but the one I have now SO happy no Brain Bleed and I guess we'll have to discuss the rest on our phone visit. just one question well 2 actually what causes Brain inflammation??? and 2 is there anything I can take along with my pain med ication to help with this Pain I mean I'm at my wits end here it is finally nice out and I'm down with some heavy duty pain. could I maybe throw a Tylenol in with it? we'll have to discuss the knee on our call as well I guess Thank You So Much Marge and mike as well Pat documented in this encounter Plan of Treatment Not on file documented as of this encounter Visit Diagnoses Not on filedocumented in this encounter Care Teams Fan Runner Relationship Specialty Start Date End Date Jose Martin Wang MD [address] [place] [phone] PCP - General 07/15/10 documented as of this encounter
--- OUTSIDE RECORDS SUMMARY | 2025-01-22 17:46 | XMS_ITS | Encounter Summary ---
Author Organization [facility] Prior to 12/16/2023 Address [address] [place] [address] Care Team Providers Care Analytics Leader Name Role Phone Jose Martin Wang MD Primary Care Provider Encounter Details Date Type Department Care Team Description 04/29/2014 Release of Information Medical Records [address] [place] [id number] Abstract, Provider Social History Tobacco Use Types [...] on filedocumented in this encounter Care Teams Analytics Leader Relationship Specialty Start Date End Date Jose Martin Wang MD [address] [place] [address] [phone] PCP - General 07/15/10 documented as of this encounter
--- OUTSIDE RECORDS SUMMARY | 2025-01-22 17:46 | XMS_ITS | Encounter Summary ---
Author Organization [facility] Prior to 12/16/2023 Address [address] [place] [address] Care Team Providers Care Band Edger Name Role Phone Jose Martin Wang MD Primary Care Provider [phone] Encounter Details Date Type Department Care Team Description 11/04/2020 Pt. Non Urgent Medical Question Adult Medicine [facility] [address] [place] [address] Angella Quinones PA-C [address] [place] [address] Abnormal MRI, knee (Primary Dx) Social History Tobacco Use Types Packs/Day Years [...] Exposure Response Date Recorded In the last month, have you been in contact with someone who was confirmed or suspected to have Coronavirus / COVID-19? No / Unsure 11/06/2020 11:24 AM EDT documented as of this encounter Plan of Treatment Not on file documented as of this encounter Results * EXTREMITY VEINS STUDY, UNILATERAL (11/06/2020 11:47 AM EDT) 11/06/2020 12:1 7 PM EDT Impressions MARCY CASTREJON EXTERNAL - 11/06/2020 12:19 PM EDT IMPRESSION: Nonvisualization of the peroneal vein. No evidence of deep vein thrombosis. Narrative MARCY CASTREJON EXTERNAL - 11/06/2020 12:19 PM EDT RIGHT LOWER EXTREMITY VENOUS ULTRASOUND HISTORY: Unusual vascular structures in the lateral aspect of the distal thigh and proximal leg on MRI of the knee from 10/29/2020. COMMENT: Peroneal vein was not visualized. The left common femoral, uppermost deep femoral, greater saphenous, femoral, popliteal, gastrocnemius, posterior tibial veins were imaged, showing no filling defects or noncompressible segments. Doppler shows normal phasic flow and normal response to calf compression. Procedure Note Marialuisa Villanueva MD - 11/06/2020 RIGHT LOWER EXTREMITY VENOUS ULTRASOUND HISTORY: Unusual vascular structures in the lateral aspect of the distalthigh and proximal leg on MRI of the knee from 10/29/2020. COMMENT: Peroneal vein was not visualized. The left common femoral,uppermost deep femoral, greater saphenous, femoral, popliteal, gastrocnemius, posterior tibialveins were imaged, showing no filling defects or noncompressible segments. Doppler showsnormal phasic flow and normal response to calf compression. IMPRESSION IMPRESSION: Nonvisualization of the peroneal vein. No evidence of deepvein thrombosis. Angella Quinones PA-C ULTRASOUND MARCY CASTREJON EXTERNAL documented in this encounter Visit Diagnoses Diagnosis Abnormal MRI, knee- Primary Other nonspecific (abnormal) findings on radiological and other examinations of body structure Abnormal MRI, knee Other nonspecific (abnormal) findings on radiological and other examinations of body structure documented in this encounter Care Teams Band Edger Relationship Specialty Start Date End Date Jose Martin Wang MD [address] [place] [id number] PCP - General 07/15/10 documented as of this encounter
--- OUTSIDE RECORDS SUMMARY | 2025-01-22 17:46 | XMS_ITS | Encounter Summary ---
Author Organization [facility] Prior to 12/16/2023 Address [address] [place] [address] Care Team Providers Care Motor Vehicle Light Assembler Name Role Phone Jose Mratin Wang MD Primary Care Provider [phone] Encounter Details Date Type Department Care Team Description 09/12/2013 Cigarette Vendor Report Medical Records [address] [place] [address] Willian Hernandez MD Social History Tobacco Use Types Packs/Day [...] on filedocumented in this encounter Care Teams Motor Vehicle Light Assembler Relationship Specialty Start Date End Date Jose Martin Wang MD [address] [place] [address] [phone] PCP - General 07/15/10 documented as of this encounter
--- OUTSIDE RECORDS SUMMARY | 2025-01-22 17:46 | XMS_ITS | Encounter Summary ---
Author Organization [facility] [employer] [facility] Prior to 12/16/2023 Address [address] [place] [address] Care Team Providers Care Field Radio Operator Name Role Phone Jose Martin Wang MD Primary Care Provider [phone] Encounter Details Date Type Department Care Team Description 11/15/2016 Release of Information Medical Records [address] [place] [address] Abstract, Provider Social History Tobacco Use Types [...] on filedocumented in this encounter Care Teams Field Radio Operator Relationship Specialty Start Date End Date Jose Martin Wang MD [address] [place] [address] [phone] PCP - General 07/15/10 documented as of this encounter
--- OUTSIDE RECORDS SUMMARY | 2025-01-22 17:46 | XMS_ITS | Encounter Summary ---
Author Organization [facility] Prior to 12/16/2023 Address [address] [place] [address] Care Team Providers Care Boring Mill Set Up Operator Name Role Phone Jose Martin Wang MD Primary Care Provider [phone] Reason for Visit * Reason Onset Date Comments Annual Wellness Outreach 11/18/2020 Encounter Details Date Type Department Care Team Description 11/18/2020 Telephone Adult Medicine [address] [address] Marge Ramey PA-C Annual Wellness Outreach Social History Tobacco Use Types Packs/Day Years [...] AM EDT documented as of this encounter Miscellaneous Notes * Telephone Encounter - Nena Calhoun - 11/18/2020 11:56 AM EDT Ms. Steele was contacted by telephone. First attempt utr lvm documented in this encounter Plan of Treatment Not on file documented as of this encounter Visit Diagnoses Not on filedocumented in this encounter Care Teams Boring Mill Set Up Operator Relationship Specialty Start Date End Date Jose Martin Wang MD [address] [place] [id number] PCP - General 07/15/10 documented as of this encounter
--- OUTSIDE RECORDS SUMMARY | 2025-01-22 17:46 | XMS_ITS | Encounter Summary ---
Author Organization [facility] Prior to 12/16/2023 Address [address] [place] [address] Care Team Providers Care Computer Operations Manager Name Role Phone Jose Martin Wang MD Primary Care Provider [phone] Reason for Visit * Reason Onset Date Comments injection 08/15/2014 Encounter Details Date Type Department Care Team Description 08/15/2014 Telephone Physiatry - [address] [address] Juan Carlos Cartagena DO injection Social History Tobacco Use Types Packs/Day Years [...] on file documented as of this encounter Miscellaneous Notes * Telephone Encounter - Annie Canales M.A. - 08/28/2014 10:19 AM EDT Appointment made * Telephone Encounter - Katy Godfrey - 08/28/2014 8:51 AM EDT Patient has been calling daily for cancellations with no success but patient states that she is in severe pain and does not feel as though she can wait for her appointment on the . Patient statesthat her pain prevents her from sleeping and she is not sure what she should do. I advised patient that there is nothing available between now and her appointment and that she can continue to call asoften as she would like, but patient doesn't feel as though she can wait to be seen. Patient can bereached at [phone]. Thank you. * Telephone Encounter - Annie Canales M.A. - 08/15/2014 11:42 AM EDT Please book patient next available appointment for follow up. Please let patient know that she can call for cancellations * Telephone Encounter - Priyanka Christy - 08/15/2014 9:45 AM EDT Pt calling stating she would like to set up appt for injection (both shoulders) documented in this encounter Plan of Treatment Not on file documented as of this encounter Visit Diagnoses Not on filedocumented in this encounter Care Teams Computer Operations Manager Relationship Specialty Start Date End Date Jose Martin Wang MD [address] [place] [phone] PCP - General 07/15/10 documented as of this encounter
--- OUTSIDE RECORDS SUMMARY | 2025-01-22 17:46 | XMS_ITS | Encounter Summary ---
Author Organization [facility] Prior to 12/16/2023 Address [address] [place] [address] Care Team Providers Care Plate Worker Name Role Phone Jose Martin Wang MD Primary Care Provider [phone] Reason for Visit * Reason Onset Date Comments Faxed Order 02/02/2020 [facility] Encounter Details Date Type Department Care Team Description 02/02/2020 Telephone Adult Medicine [address] [address] Jose Martin Wang MD [address] [place] [address] [phone] Faxed Order ([facility] ) Social History Tobacco Use Types Packs/Day Years [...] have Coronavirus / COVID-19? No / Unsure 01/22/2020 1:13 PM EST documented as of this encounter Miscellaneous Notes * Telephone Encounter - Zully Kuhn - 02/02/2020 10:46 AM EST Placed in doctors bin: [facility] Please Review, Sign & Fax when completed. documented in this encounter Plan of Treatment Not on file documented as of this encounter Visit Diagnoses Not on filedocumented in this encounter Care Teams Plate Worker Relationship Specialty Start Date End Date Jose Martin Wang MD [address] [place] [phone] PCP - General 07/15/10 documented as of this encounter
--- OUTSIDE RECORDS SUMMARY | 2025-01-22 17:46 | XMS_ITS | Encounter Summary ---
Author Organization [facility] Prior to 12/16/2023 Address [address] [place] [address] Care Team Providers Care Threader Name Role Phone Jose Martin Wang MD Primary Care Provider [phone] Encounter Details Date Type Department Care Team Description 03/11/2016 [facility] Medical Records [address] [place] [address] Abstract, Provider Social History Tobacco Use Types [...] on filedocumented in this encounter Care Teams Threader Relationship Specialty Start Date End Date Jose Martin Wang MD [address] [place] [address] [phone] PCP - General 07/15/10 documented as of this encounter
--- OUTSIDE RECORDS SUMMARY | 2025-01-22 17:46 | XMS_ITS | Encounter Summary ---
Author Organization [facility] Prior to 12/16/2023 Address [address] [place] [address] Care Team Providers Care Medical Lab Technician Name Role Phone Jose Martin Wang MD Primary Care Provider [phone] Encounter Details Date Type Department Care Team Description 12/14/2019 Pt. Non Urgent Medical Question Adult Medicine [address] [phone] Jose Martin Wang MD [address] [place] [address] [phone] Social History Tobacco Use Types Packs/Day Years [...] on filedocumented in this encounter Care Teams Medical Lab Technician Relationship Specialty Start Date End Date Jose Martin Wang MD [address] [place] [phone] PCP - General 07/15/10 documented as of this encounter
--- OUTSIDE RECORDS SUMMARY | 2025-01-22 17:46 | XMS_ITS | Encounter Summary ---
Author Organization [facility] Prior to 12/16/2023 Address [address] [place] [address] Care Team Providers Care Drill Press Operator For Metal Name Role Phone Jose Martin Wang MD Primary Care Provider [phone] Encounter Details Date Type Department Care Team Description 06/26/2015 Bereavement Counselor Report Medical Records [address] [place] [address] Alex Christianson MD Social History Tobacco Use [...] on filedocumented in this encounter Care Teams Drill Press Operator For Metal Relationship Specialty Start Date End Date Jose Martin Wang MD [address] [place] [address] [phone] PCP - General 07/15/10 documented as of this encounter
--- OUTSIDE RECORDS SUMMARY | 2025-01-22 17:46 | XMS_ITS | Encounter Summary ---
Author Organization [facility] Prior to 12/16/2023 Address [address] [place] [address] Care Team Providers Care Cement Loader Name Role Phone Jose Martin Wang MD Primary Care Provider [phone] Encounter Details Date Type Department Care Team Description 04/22/2015 Release of Information Medical Records [address] [place] [address] Abstract, Provider Social History Tobacco Use Types [...] on filedocumented in this encounter Care Teams Cement Loader Relationship Specialty Start Date End Date Jose Martin Wang MD [address] [place] [address] [phone] PCP - General 07/15/10 documented as of this encounter
--- OUTSIDE RECORDS SUMMARY | 2025-01-22 17:47 | XMS_ITS ---
Author Name [facility] Organization Unknown Care Team Organization Name Specialty Phone Email Start Date End Da te [facility] ACO 10/03/2024 [facility] COLLINS CHICAS Primary Care 07/23/2022 [facility] Termed, PROVIDER Primary Care 12/22/202109/14
--- OUTSIDE RECORDS SUMMARY | 2025-01-22 17:47 | XMS_ITS | Clinical Summary ---
Author Organization [facility] Prior to 12/16/2023 Address [address] [place] [address] Care Team Providers Care Power Cutting Machine Operator Name Role Phone Jose Martin Wang MD Primary Care Provider [phone] Allergies Active Allergy Reactions Severity Noted Date Comments Cabbage Hives/Urticaria 03/22/2016 Cefaclor 04/04/2006 Maple Flavor Hives/Urticaria 03/22/2016 Penicillin V Potassium Hives/Urticaria 05/11/19 06 Penicillins Hives/Urticaria,Swel ling/Christopher a 07/16/2009 LIPS SWELL Sulfacetamide Sodium Hives/Urticaria 05/10/2005 Medications Medication Sig Dispensed Refills Start Date End Date Status Multiple Vitamin (MULTIVITAMIN OR) 1 po daily 0 Active Cyanocobalamin (VITAMIN B-12 CR OR) Take by mouth daily. 0 Active CALCIUM CARBONATE-VIT D-MIN OR Take by mouth daily. 0 Active metformin (GLUCOPHAGE) 500 MG tablet Take 2 Tablets by mouth 2 times daily (with meals). 360 Tablet 1 08/02/2023 Active atorvastatin (LIPITOR) 10 MG tablet Take 1 Tablet by mouth at bedtime. 90 Tablet 1 08/02/2023 Active lisinopril (PRINIVIL,ZESTRIL) 10 MG tablet Take 1 Tablet by mouth daily. 90 Tablet 1 08/02/2023 Active meloxicam (Mobic) 7.5 MG tablet Take 1 Tablet by mouth daily. 90 Tablet 1 11/02/2023 Active Meclizine HCl 25 MG Tab Take 1 Tablet by mouth 3 times daily as needed (Dizziness). 45 Tablet 0 11/04/2023 Active ALBUTEROL SULFATE 108 (90 Base) MCG/ACT Aero Soln INHALE 1 PUFF INTO THE LUNGS EVERY 4 HOURS NEEDED FOR COUGH OR WHEEZING 8.5 g 1 11/10/2023 Active oxycodone-acetaminop hen (Endocet) 10-325 MG per tablet Take 1 Tablet by mouth 4 times daily. 112 Tablet 0 12/08/2023 Active Active Problems Patient Care Coordination No te Formatting of this note is d ifferent from the original. Checking Your Blood Sugars Please check your blood sugars every day. Please check your sugars at the following times of day: before breakfast and before bedtime Your Blood Sugar Goals Pre Meal: 90-130 2 hours after meals: 110-160 Bedtime: 110-150 Use the Results Bring your glucometer to every appointment Write your fingerstick blood sugars down on a log sheet or record book. Bring them to your appointment Look for patterns in the numbers. The results help you and your provider make decisions about your diabetes treatment plan. Your Results and your Goals Your Result / Date of Completion Your Goal / How Often to Assess Component Value Date HGBA1C 6.4 07/31/2013 Less than 7% --- 2-4 times per year BP Readings from Last 1 Encounters: 11/30/13 128/70 Less than 140/90 --- once per year Component Value Date MALBCR 16 04/27/2013 Less than 30 --- once per year Component Value Date LDL 120 04/27/2013 Less than 100 --- once per year Wt Readings from Last 1 Encounters: 11/30/13 216 lb (97.977 kg) Your goal weight by next visit: 211 --- reassess 2-4 times a year Health Maintenance Due Topic Date Due Diabetes: Annual Care Plan 09/06/1979 Hepatitis C Screening 09/06/1979 Adult Immunization: Pneumovax For High Risk Patients (#1) 09/06/1979 Pap Smear 1982 Baseline Health Exam 40-64 2001 Mammogram 2001 Colon Cancer Screening 09/06/2011 Diabetes: Annual Foot Exam 10/26/2012 Diabetes: Annual Eye Exam 11/24/2013 Diabetes: Blood Sugar Control Test (Hgba1c) 11/30/2013 Your Action Plan Check blood glucose as directed and write down all results. Contact me if you experience any barriers to care such as inability to purchase your medication, difficulty getting to your appointments or difficulty understanding your care plan When to Call your Healthcare Provider If your blood sugar falls below 70 and you do not know why or you become unconscious If you are sick and unable to take liquids because or nausea or vomiting If you have a fever over 101 If your blood sugar is 300 or higher on greater than 3 separate occasions during the same week If you are just unsure what to do Educational Resources [place] [employer] (www.diabetes.org) Centers for Disease Control and Prevention (www.cdc.gov/diabetes) This care plan was created in collaboration with Carlee Steele on 11/30/2013 Problem Noted Date Pulmonary nodules 07/17/2020 History of COVID-19 07/07/2020 High cholesterol 02/01/2019 Lumbar disc disease 2017 Ascending aorta dilation (HCC) 3.6 via e cho 10/201611/24/2016 Diabetic neuropathy 04/08/2014 Uncontrolled type 2 diabetes mellitus wi th cataract 06/19/2013 DM (diabetes mellitus), type 2 with neur ological complications 08/22/2012 Cataract 07/01/2010 Hyperglycemia 01/07/2010 Degenerative arthritis of cervical spine 07/16/2009 Rotator cuff tendinitis 07/16/2009 Essential hypertension, benign 7 Lumbago 01/25/2005 Overview: failed back syndrome INSOMNIA 01/25/2005 History of tobacco use Resolved Problems Problem Noted Date Resolved Date Radiculitis, cervical 07/16/2009 06/17/2010 Neck pain 07/16/2009 06/17/2010 Shoulder pain 07/16/2009 06/17/2010 Immunizations Name Administration Dates Next Due COVID-19 (Moderna) 06/12/2020 Tdap 08/04/2012 Family History Medical History Relation Name Comments Macular Degeneration Maternal Grandmother Cataract Mother Glaucoma Mother Blindness Negative Hx Strabismus Negative Hx Relation Name Status Comments Maternal Grandmother Mother Social History Tobacco Use Types Packs/Day Years Used Date Smoking Tobacco: Former Cigarettes 0.1 33 0 02/14/1981 - 02/14/2014 Smokeless Tobacco: Former Tobacco Cessation:Counseling Given: Not Answered Comments:occ Alcohol Use Standard Drinks/Week Comments Yes 0 (1 standard drink = 0.6 oz pur e alcohol) rare Sex Assigned at Date Recorded Not on file Job Start Date Occupation Industry Not on file Not on file Not on file Last Filed Vital Signs Vital Sign Reading Time Taken Comments Blood Pressure 118/62 11/04/2023 3:06 PM EDT Pulse 95 11/04/2023 3:06 PM EDT Temperature 36 C (96.8 F) 11/04/2023 3:06 PM EDT Respiratory Rate 12 08/02/2023 2:53 PM EDT Oxygen Saturation 98% 04/15/2022 1:32 PM EST Inhaled Oxygen Concentration - - Weight 80.3 kg (177 lb) 11/11/2023 7:14 AM EDT Height 172.7 cm (5' 8 ) 11/11/2023 7:14 AM EDT Body Mass Index 26.91 11/11/2023 7:14 AM EDT Plan of Treatment Health Maintenance Due Date Last Done Comments PNEUMOCOCCAL VACCINE FOR HIG H RISK PATIENTS (#1) 1980 CERVICAL CANCER SCREENING 1982 MAMMOGRAM 2001 COLON CANCER SCREENING 09/06/2011 SHINGLES VACCINE (1 of 2) 09/06/2011 DIABETES: ANNUAL FOOT EXAM 07/07/202107/07, 08/08/2018 (External Completion), 04/08/2014, Additional history exists Lung Cancer Screening (Low D ose CT) 07/21/2022 07/21/2021, 07/16/2020 DTAP/TDAP/TD (2 - Td or Tdap) 08/04/2022 08/04/2012 DIABETES: ANNUAL EYE EXAM 01/29/20242022, 03/27/2018, 11/24/2012, Additional history exists BMI CHECK/ADVISE 02/15/2024 01/24/2023, 02/2022, 04/15/2022, Additional history exists DIABETES: BLOOD SUGAR CONTRO L TEST (HGBA1C) 02/24/2024 11/24/2023, 08/02/2023, 05/04/2023, Additional history exists DIABETES/HEART DISEASE: EMILY AL CHOLESTEROL (LDL) 08/01/2024 08/02/2023, 02/01/2023, 08/06/2022, Additional history exists Covid-19 Vaccine (2 - 2022-2 4 season) 2024 06/12/2020 INFLUENZA (#1) 2024 03/22/2016 (Refused) DEPRESSION SCREEN 11/03/2024 11/04/2023, , 01/19/2018, Additional history exists DIABETES: ANNUAL URINE PROTE IN TEST (MICROALBUMIN) 11/23/2024 11/24/2023, 08/02/2023, 10/27/2022, Additional history exists BASELINE HEALTH EXAM 40-64 11/03/2025 11/04/2023, HEPATITIS C SCREENING Completed 10/16/2020 Care Teams Power Cutting Machine Operator Relationship Specialty Start Date End Date Jose Martin Wang MD [address] [place] [address] PCP - General 07/15/10
--- OUTSIDE RECORDS SUMMARY | 2025-01-22 17:47 | XMS_ITS | Encounter Summary ---
Author Organization [facility] Prior to 12/16/2023 Address [address] [place] [address] Care Team Providers Care Tier And Detonator Name Role Phone Jose Martin Wang MD Primary Care Provider Encounter Details Date Type Department Care Team Description 04/09/2020 Telephone Adult Medicine [facility] [address] [place], [place] [phone] Jose Martin Wang MD [address] [place], [place] [phone] Social History Tobacco Use Types Packs/Day Years [...] encounter Miscellaneous Notes * Telephone Encounter - James Horton C.M.A. - 04/09/2020 1:00 PM EST Called and lvm for p alex all the office to scheduled for 3 mth f/u csc * Telephone Encounter - Jose Martin Wang MD - 04/09/2020 10:56 AM EST Please schedule pt with me in 3 months csc/chronic in the office documented in this encounter Plan of Treatment Not on file documented as of this encounter Visit Diagnoses Not on filedocumented in this encounter Care Teams Tier And Detonator Relationship Specialty Start Date End Date Jose Martin Wang MD [address] [place] [phone] PCP - General 07/15/10 documented as of this encounter
--- OUTSIDE RECORDS SUMMARY | 2025-01-22 17:47 | XMS_ITS | Encounter Summary ---
Author Organization [facility] Prior to 12/16/2023 Address [address] [place] [address] Care Team Providers Care Reformatory Attendant Name Role Phone Jose Martin Wang MD Primary Care Provider [phone] Encounter Details Date Type Department Care Team Description 07/24/2020 Refill Adult Medicine [facility] [address] [place], [place] [phone] Jose Martin Wang MD [address] [place] [address] [phone] Social History Tobacco Use Types Packs/Day Years [...] have Coronavirus / COVID-19? No / Unsure 07/22/2020 12:58 PM EDT documented as of this encounter Miscellaneous Notes * Telephone Encounter - Kenton Reid C.M.A. - 07/25/2020 2:51 PM EDT Script has been placed in PPU. * Telephone Encounter - Ketnon Reid C.M.A. - 07/25/2020 8:58 AM EDT Lv 07/07/20 Appt 10/22/20 Pt contracted and due for medication. Lab Results Component Value Date URBENZO NONE DETECTED 10/19/2019 UROPIATES POSITIVE 10/19/2019 UROXYCODONE POSITIVE 10/19/2019 URBARBITUATE NONE DETECTED 10/19/2019 PAINAMPHETAM NONE DETECTED 10/19/2019 PAINCOCAINE NONE DETECTED 10/19/2019 PAINCANNABIN NONE DETECTED 10/19/2019 The patients' Mass[employer] report was reviewed by Jose Martin Wang MD today. documented in this encounter Plan of Treatment Not on file documented as of this encounter Visit Diagnoses Not on filedocumented in this encounter Care Teams Reformatory Attendant Relationship Specialty Start Date End Date Jose Martin Wang MD [address] [place] [phone] PCP - General 07/15/10 documented as of this encounter
--- OUTSIDE RECORDS SUMMARY | 2025-01-22 17:47 | XMS_ITS | Encounter Summary ---
Author Organization [facility] Prior to 12/16/2023 Address [address] [place] [address] Care Team Providers Care Sports Book Board Attendant Name Role Phone Jose Martin Wang MD Primary Care Provider [phone] Encounter Details Date Type Department Care Team Description 11/30/2023 [facility] Medical Records [address] [place] [address] Abstract, Provider Social History Tobacco Use Types [...] on filedocumented in this encounter Care Teams Sports Book Board Attendant Relationship Specialty Start Date End Date Jose Martin Wang MD [address] [place], [place] [phone] PCP - General 07/15/10 documented as of this encounter
--- OUTSIDE RECORDS SUMMARY | 2025-01-22 17:48 | XMS_ITS | Encounter Summary ---
Author Organization [facility] Prior to 12/16/2023 Address [address] [place] [address] Care Team Providers Care Motor Winder Name Role Phone Jose Martin Wang MD Primary Care Provider [phone] Encounter Details Date Type Department Care Team Description 12/24/2011 Pt. Non Urgent Medical Question Adult Medicine [facility] [address] [place] [address] Jose Martin Wang MD [address] [place] [id number] Social History Tobacco Use Types Packs/Day Years [...] on file documented as of this encounter Progress Notes * Sakshi BrownP.NZeyad - 12/24/2011 10:51 AM ESTFrom: JOSSELIN ANTONIO To: Jose Martin Wang MD Sent: TueDec 24, 2011 10:36 AM Subject: mri results could my mri results please be posted on My Chart silvestre? documented in this encounter Plan of Treatment Not on file documented as of this encounter Visit Diagnoses Not on filedocumented in this encounter Care Teams Motor Winder Relationship Specialty Start Date End Date Jose Martin Wang MD [address] [place] [id number] PCP - General 07/15/10 documented as of this encounter
--- OUTSIDE RECORDS SUMMARY | 2025-01-22 17:48 | XMS_ITS | Encounter Summary ---
Author Organization [facility] [employer] [facility] Prior to 12/16/2023 Address [address] [place] [address] Care Team Providers Care Fishing Boat Captain Name Role Phone Jose Martin Wang MD Primary Care Provider [phone] Encounter Details Date Type Department Care Team Description 03/10/2021 [facility] [address] [place] [address] Abstract, Provider Social History Tobacco Use Types [...] on filedocumented in this encounter Care Teams Fishing Boat Captain Relationship Specialty Start Date End Date Jose Martin Wang MD [address] [place], [place] [phone] PCP - General 07/15/10 documented as of this encounter
--- OUTSIDE RECORDS SUMMARY | 2025-01-22 17:48 | XMS_ITS | Encounter Summary ---
Author Organization [facility] Prior to 12/16/2023 Address [address] [place] [address] Care Team Providers Care Rod Mill Operator Name Role Phone Jose Martin Wang MD Primary Care Provider [phone] Reason for Visit * Reason Onset Date Comments TEST RESULTS 04/17/2021 urine submitted this am pt asking for rx Encounter Details Date Type Department Care Team Description 04/17/2021 Pt. Non Urgent Medical Question Adult Medicine [address] [address] Jose Martin Wang MD [address] [place] [id number] Social History Tobacco Use Types Packs/Day Years [...] have Coronavirus / COVID-19? No / Unsure 04/17/2021 8:12 AM EST documented as of this encounter Miscellaneous Notes * Telephone Encounter - Ani Hendrickson M.A. - 04/17/2021 8:43 AM ESTFrom: Carlee Steele To: Reva Wang Sent: 04/17/2021 8:39 AM EST Subject: uti Hi Doc was in early this morning for urine culture for uti which has decided to reoccur can you please send a script for antibiotics to the pharmacy as I am quite miserable documented in this encounter Plan of Treatment Not on file documented as of this encounter Visit Diagnoses Not on filedocumented in this encounter Care Teams Rod Mill Operator Relationship Specialty Start Date End Date Jose Martin Wang MD [address] [place] [id number] PCP - General 07/15/10 documented as of this encounter
--- OUTSIDE RECORDS SUMMARY | 2025-01-22 17:48 | XMS_ITS | Encounter Summary ---
Author Organization [facility] Prior to 12/16/2023 Address [address] [place] [address] Care Team Providers Care Seater Grinder Name Role Phone Jose Martin Wang MD Primary Care Provider [phone] Encounter Details Date Type Department Care Team Description 01/28/2017 [facility] Records [address] [place] [address] Abstract, Provider Social History Tobacco Use Types [...] on filedocumented in this encounter Care Teams Seater Grinder Relationship Specialty Start Date End Date Jose Martin Wang MD [address] [place] [phone] PCP - General 07/15/10 documented as of this encounter
--- OUTSIDE RECORDS SUMMARY | 2025-01-22 17:48 | XMS_ITS | Encounter Summary ---
Author Organization [facility] [employer] [facility] Prior to 12/16/2023 Address [address] [place] [address] Care Team Providers Care Parking Attendant Name Role Phone Jose Martin Wang MD Primary Care Provider [phone] Encounter Details Date Type Department Care Team Description 03/21/2017 [facility] Medical Records [address] [place] [address] Abstract, Provider Social History Tobacco Use Types Packs/Day Years Used Date Smoking Tobacco: Former Cigarettes Q uit: 02/14/2014 Smokeless Tobacco: Former Comments:occ Alcohol Use Standard Drinks/Week Comments Not [...] on filedocumented in this encounter Care Teams Parking Attendant Relationship Specialty Start Date End Date Jose Martin Wang MD [address] [place] [address] [id number] PCP - General 07/15/10 documented as of this encounter
--- OUTSIDE RECORDS SUMMARY | 2025-01-22 17:48 | XMS_ITS | Encounter Summary ---
Author Organization [facility] Prior to 12/16/2023 Address [address] [place] [address] Care Team Providers Care Sandblaster Stone Name Role Phone Jose Martin Wang MD Primary Care Provider [phone] Reason for Referral * Specialist (Routine) - Authorized/Booked Specialty Diagnoses / Procedures Referred By Meghana klein Referred To Contact Podiatry Diagnoses Nail problem Diabetes mellitus type 2, uncontrolled Procedures REFERRAL TO PODIATRY Jose Martin Wang MD [address] [place] [address] [place] [address] Referral ID Status Reason Start Date Expiration Date V isits Requested Visits Authorized NOT REQUIRED/SENT LETTER 05/08 Authorized/ Booked 05/01/2012 05/01/2013 1 1 Reason for Visit * Reason Onset Date Comments Tar Heater Operator Feedback 05/01/2012 Encounter Details Date Type Department Care Team Description 05/01/2012 Telephone Adult Medicine [address] [address] Jose Martin Wang MD [address] [place] [address] Tar Heater Operator Feedback Social History Tobacco Use Types Packs/Day Years [...] encounter Miscellaneous Notes * Telephone Encounter - Jose Martin Wang MD - 05/01/2012 1:24 PM EDT Order placed * Telephone Encounter - Rox Bar - 05/01/2012 1:21 PM EDT Please review this patients new referral request. The referral has been pended. Please complete thefollowing: If approved> sign order If denied>please give instructions and route to your practice nursing pool. Practice nurse should inform referrals and the patient if denied. * Telephone Encounter - Naomi Chua - 05/01/2012 12:22 PM EDT Request for a referral to a [facility] Specialist for a patient with a [facility] PCP. If patient does NOT have a [facility] PCP they must obtain a referral from their PCP before being seen-do not submit request to Referrals department-contact patient. Scottie MANCILLA and Vladislav MANCILLA should not see patients with community PCP's as they are not billed as specialists. Specialty patient is being referred to: Podiatry Name of Specialist patient is seeing: Pt doesn't know Reason/diagnosis for visit: annual check for diabetes. And check on toe nail that fell off Date of appoinment: waiting for referral If retro, date referral needs to start: Jose Martin Wang MD [place] Product Type: MEDICARE [id number] documented in this encounter Plan of Treatment Not on file documented as of this encounter Visit Diagnoses Diagnosis Nail problem Unspecified disease of nail Diabetes mellitus type 2, uncontrolled Type II or unspecified type diabetes mellitus without mention of complication, uncontrolled documented in this encounter Care Teams Sandblaster Stone Relationship Specialty Start Date End Date Jose Martin Wang MD [address] [place] [id number] PCP - General 07/15/10 documented as of this encounter
--- OUTSIDE RECORDS SUMMARY | 2025-01-22 17:48 | XMS_ITS | Encounter Summary ---
Author Organization [employer] [facility] Prior to 12/16/2023 Address [address] [place] [address] Care Team Providers Care Credit Correspondence Clerk Name Role Phone Jose Martin Wang MD Primary Care Provider [phone] Encounter Details Date Type Department Care Team Description 04/17/2021 Pt. Non Urgent Medic al Question Adult Medicine [address] [id number] Marge Morgan PA Social History Tobacco Use [...] AM EST documented as of this encounter Plan of Treatment Not on file documented as of this encounter Visit Diagnoses Not on filedocumented in this encounter Care Teams Credit Correspondence Clerk Relationship Specialty Start Date End Date Jose Martin Wang MD [address] [place] [phone] PCP - General 07/15/10 documented as of this encounter
--- OUTSIDE RECORDS SUMMARY | 2025-01-22 17:50 | XMS_ITS | Encounter Summary ---
Author Organization [facility] [employer] [facility] Prior to 12/16/2023 Address [address] [place] [address] Care Team Providers Care Director Hr Communications Name Role Phone Jose Martin Wang MD Primary Care Provider [phone] Encounter Details Date Type Department Care Team Description 04/07/2017 [facility] Medical Records [address] [place] [address] Abstract, Provider Social History Tobacco Use Types [...] on filedocumented in this encounter Care Teams Director Hr Communications Relationship Specialty Start Date End Date Jose Martin Wang MD [address] [place] [address] [phone] PCP - General 07/15/10 documented as of this encounter
--- OUTSIDE RECORDS SUMMARY | 2025-01-22 17:51 | XMS_ITS | Encounter Summary ---
Author Organization [facility] Prior to 12/16/2023 Address [address] [place] [address] Care Team Providers Care Forensic Ballistics Expert Name Role Phone Jose Martin Wang MD Primary Care Provider Reason for Visit * Reason Onset Date Comments APPOINTMENT 05/17/2011 Encounter Details Date Type Department Care Team Description 05/17/2011 Telephone Ophthalmology-[address] [address] [place], [place] APPOINTMENT Social History Tobacco Use Types Packs/Day Years [...] encounter Miscellaneous Notes * Telephone Encounter - Sherin Nogueira M.A. - 05/18/2011 4:23 PM EDT Information given to Dr River * Telephone Encounter - Tanisha Gamez - 05/17/2011 2:56 PM EDT Patient calling in response to letter sent on 05/11/11. She stated that it is too far for her to go to [facility]. She wants to know if she can go to some place closer. Please contact patient. documented in this encounter Plan of Treatment Not on file documented as of this encounter Visit Diagnoses Not on filedocumented in this encounter Care Teams Forensic Ballistics Expert Relationship Specialty Start Date End Date Jose Martin Wang MD [address] [place] [id number] PCP - General 07/15/10 documented as of this encounter
== END 2025-01-22 13:48 | disposition home or self-care (01) ==
LOC: HO.HPHYS 13:15
PROVIDERS: PCP Internal Medicine; Visit Provider Physical Medicine & Rehabilitation
DX: M75.42 Impingement syndrome of left shoulder (principal); M75.41 Impingement syndrome of right shoulder
CPT/HCPCS: 20610

== ENCOUNTER → 2025-01-22 13:15 | Outpatient (BNVA) | payer MEDICARE, SELFPAY | PROVIDERS: PCP Internal Medicine; Visit Provider Physical Medicine & Rehabilitation | DX: M75.42 Impingement syndrome of left shoulder (principal); M75.41 Impingement syndrome of right shoulder | CPT/HCPCS: 20610; J2003; J3301 ==